=== PATIENT | male | born 1970 | race African-American/Black ===

== ENCOUNTER 2017-12-22 12:20 | Inpatient (IN) | payer OTHER ==
[2017-12-22 15:28] VITALS: BMI 26.6
--- NOTE | 2017-12-22 18:19 | HP ---
COWS - Scale Resting Pulse: 1= [place] 81-100 Sweatin=Flushed/Facial Moisture Restless Observation: 3= Extraneous Movement Pupil Size: 2= Moderately Dilated Bone or Joint Aches: 2= Severe Diffuse Aches Runny Nose/ Eye Tearin= Runny Nose/Eyes GI Upset > 30mins: 3= Vomiting/Diarrhea Tremor Observation: 2= Slight Tremor Visible Yawning Observation: 2= >3x During Session Anxiety or Irritability: 2=Irritable/Anxious Goose Flesh Skin: 0=Smooth Skin COWS Score: 21 CIWA Score - CIWA Score Nausea/Vomitin Muscle Tremors: 3 Anxiety: 3 Agitation: 3 Paroxysmal Sweats: 1-Minimal Palms Moist Orientation: 0-Oriented Tacttile Disturbances: 2-Mild Itch/Numbness/Burn Auditory Disturbances: 2-Mild Harshness/Frighten Visual Disturbances: 0-None Headache: 2-Mild CIWA-Ar Total Score: 19 Admission ROS BHS - HPI Chief Complaint: I NEED HELP TO STOP USING HEROIN,ALCOHOL,COCAINE AND MARIJUANA Allergies/Adverse Reactions: Allergies Allergy/AdvReac Type Severity Reaction Status Date / Time Penicillins Allergy Mild Difficulty Verified 12/22/17 17:54 Breathing shellfish derived Allergy Mild Hives Verified 12/22/17 17:54 History of Present Illness: THIS 47 YEARS OLD MALE WITH HEROIN,ALCOHOL,COCAINE,MARIJUANA DEPENDENCE,SEEKING DETOX,WITHDRAWAL SYMPTOM,LAST DETOX 2016 [facility] LAST 6 MOTHS AGO NO MAJOR MEDICAL PROBLEM NICOTINE DEPENDENCE INSOMNIA LONGEST PERIOD OF SOBRIETY 8 YEARS Exam Limitations: No Limitations - Ebola screening Have you been sick,other than usual withdrawal symptoms: No - Review of Systems Constitutional: Chills, Loss of Appetite, Malaise, Night Sweats, Changes in sleep, Weakness, Unintentional Wgt. Loss EENT: reports: Tearing, Nose Congestion Respiratory: reports: No Symptoms reported Cardiac: reports: No Symptoms Reported GI: reports: Diarrhea, Nausea, Vomiting, Abdominal cramping : reports: No Symptoms Reported Musculoskeletal: reports: Back Pain, Joint Pain, Muscle Pain, Joint Stiffness Integumentary: reports: Dryness Neuro: reports: Headache, Tremors Endocrine: reports: No Symptoms Reported Hematology: reports: No Symptoms Reported Psychiatric: reports: No Sypmtoms Reported, Judgement Intact, Mood/Affect Appropiate, Anxious, Depressed Patient History - Patient Medical History Hx Anemia: No Hx Asthma: No Hx Chronic Obstructive Pulmonary Disease (COPD): No Hx Cancer: No Hx Cardiac Disorders: No Hx Congestive Heart Failure: No Hx Hypertension: No Hx Hypercholesterolemia: No Hx Pacemaker: No HX Cerebrovascular Accident: No Hx Seizures: No Hx Dementia: No Hx Diabetes: No Hx Gastrointestinal Disorders: No Hx Liver Disease: No Hx Genitourinary Disorders: No Hx Sexually Transmitted Disorders: No Hx Renal Disease (ESRD): No Hx Thyroid Disease: No Hx Human Immunodeficiency Virus (HIV): No (LAST 2013 NEGATIVE) Hx Hepatitis C: No Hx Depression: No Hx Suicide Attempt: No Hx Bipolar Disorder: No Hx Schizophrenia: No Other Medical History: NO SUICIDAL,NO HOMICAL - Patient Surgical History Past Surgical History: No - PPD History Previous Implant?: Yes Documented Results: Negative w/o proof Implanted On Prior [facility] Admission?: No PPD to be Administered?: Yes - Smoking Cessation Smoking history: Current some day smoker Have you smoked in the past 12 months: Yes Aproximately how many cigarettes per day: 5 Cigars Per Day: 0 Hx Chewing Tobacco Use: No Initiated information on smoking cessation: Yes 'Breaking Loose' booklet given: 12/22/17 - Substance & Tx. History Hx Alcohol Use: Yes Hx Substance Use: Yes Substance Use Type: Alcohol, Cocaine, Heroin - Substances Abused Alcohol Route: Oral Frequency: Daily Amount used: 4/6 PACKS BEER Age of first use: 13 Date of Last Use: 12/21/17 Cocaine Route: Smoking Frequency: 3-6 times per week Amount used: $100WEEK Age of first use: 13 Date of Last Use: 12/21/17 Heroin Route: Inhalation Frequency: 1-2 times per week Amount used: $150 DAY Age of first use: 17 Date of Last Use: 12/21/17 Family Disease History - Family Disease History Family Disease History: Other: Father (DSA,), Mother (ALCOHOL,) Admission Physical Exam BHS - Vital Signs Vital Signs: Vital Signs - 24 hr 12/22/17 15:26 Temperature 98.6 F Pulse Rate 88 Respiratory 20 Rate Blood Pressure 160/101 - Physical General Appearance: Yes: Moderate Distress, Tremorous, Irritable, Sweating, Anxious HEENTM: Yes: Normal ENT Inspection, MARY, Pharynx Normal Respiratory: Yes: Lungs Clear, Normal Breath Sounds, No Respiratory Distress Neck: Yes: Within Normal Limits, Supple, Trachea in good position Breast: Yes: Within Normal Limits Cardiology: Yes: Within Normal Limits, Regular Rhythm, Regular Rate, S1, S2 Abdominal: Yes: Within Normal Limits, Normal Bowel Sounds, Non Tender, Soft Genitourinary: Yes: Within Normal Limits Back: Yes: Within Normal Limits, Normal Inspection, Muscle Spasm Musculoskeletal: Yes: full range of Motion, Back pain, Joint Stiffness, Muscle Pain Extremities: Yes: Within Normal Limits, Normal Range of Motion, Non-Tender, Tremors Neurological: Yes: poultry packer II-XII NML intact, Fully Oriented, Alert, Motor Strength 5/5 Integumentary: Yes: Dry Lymphatic: Yes: Within Normal Limits - Diagnostic (1) Opioid dependence with withdrawal Current Visit: Yes Status: Acute (2) Alcohol dependence with uncomplicated withdrawal Current Visit: Yes Status: Acute (3) Cocaine dependence Current Visit: Yes Status: Acute (4) Cannabis dependence Current Visit: Yes Status: Acute (5) Weight loss Current Visit: Yes Status: Acute (6) Nicotine dependence Current Visit: Yes Status: Acute (7) Syncope Current Visit: Yes Status: Acute Cleared for Admission [facility] - Detox or Rehab [facility] Level of Care: Medically Managed Detox Regimen/Protocol: Methadone/Librium [facility] Breath Alcohol Content Breath Alcohol Content: 0 Urine Drug Screen - Results Drug Screen Negative: No Urine Drug Screen Results: THC-Marijuana, LUKE-Cocaine, OPI-Opiates
[2017-12-22] MEDS ORDERED: LOPERAMIDE HCL 2 MG CAPSULE PO PRN (18:38)
[2017-12-22] MEDS ORDERED: MAGNESIUM HYDROX 2400MG/30ML ORAL SUSPENSION 30 ML CUP PO PRN (18:38)
[2017-12-22] MEDS ORDERED: chlordiazePOXIDE HCL 25 MG CAPSULE PO PRN (18:38)
[2017-12-22] MEDS ORDERED: MAG HYDROX/AL HYDROX/SIMETH 30 ML UNIT-DOSE CUP PO PRN (18:38)
[2017-12-22] MEDS ORDERED: MENTHOL/PHENOL 1 EACH UD MM PRN (18:38)
[2017-12-22] MEDS ORDERED: hydrOXYzine PAMOATE 25 MG CAPSULE (FP) PO PRN (18:38)
[2017-12-22] MEDS ORDERED: ACETAMINOPHEN 325 MG TABLET (FP) PO PRN (18:38)
[2017-12-22] MEDS ORDERED: MAGNESIUM CITRATE 300 ML BOTTLE PO PRN (18:38)
[2017-12-22] MEDS ORDERED: IBUPROFEN 400 MG TABLET (FP) PO PRN (18:38)
[2017-12-22] MEDS ORDERED: P-EPHED 60MG/TRIPROLIDI 2.5MG TABLET PO PRN (18:38)
[2017-12-22] MEDS ORDERED: chlordiazePOXIDE HCL 25 MG CAPSULE PO ONE (19:00)
[2017-12-22] MEDS ORDERED: METHADONE HCL 10 MG TABLET (FOR DETOX USE ONLY) PO ONE ×2 (19:00→23:00)
[2017-12-22] MEDS: NICOTINE 21 MG/24 HOURS TOPICAL PATCH TD SCH (19:50)
[2017-12-22 21:08] LABS: URINE APPEARANCE CLEAR; URINE BILIRUBIN NEGATIVE (NEGATIVE); URINE BLOOD 1+ (NEGATIVE); URINE COLOR LTYELLOW; URINE GLUCOSE (UA) NEGATIVE (NEGATIVE); URINE KETONE NEGATIVE (NEGATIVE); URINE LEUK ESTERASE NEGATIVE (NEGATIVE); URINE NITRITE NEGATIVE (NEGATIVE); URINE PROTEIN NEGATIVE (NEGATIVE); URINE UROBILINOGEN NEGATIVE mg/dL (0.2-1.0)
[2017-12-22 21:17] LABS: EPI CELLS RARE /HPF (FEW); URINE MUCUS RARE
[2017-12-22] MEDS: CYCLOBENZAPRINE HCL 10 MG TABLET (FP) PO PRN (22:39)
[2017-12-22] MEDS: MELATONIN 5 MG TABLETS PO SCH (22:39)
[2017-12-22] MEDS: cloNIDine HCL 0.1 MG TABLET PO SCH (22:39)
[2017-12-22] MEDS: THIAMINE HCL 100 MG TABLET (FP) PO SCH (22:39)
[2017-12-22] MEDS: chlordiazePOXIDE HCL 25 MG CAPSULE PO SCH (22:40)
[2017-12-23] MEDS: chlordiazePOXIDE HCL 25 MG CAPSULE PO SCH ×4 (05:28→22:12)
--- NOTE | 2017-12-23 08:23 | EKG ---
Test Reason : Blood Pressure : / mmHG Vent. Rate : 084 BPM Atrial Rate : 084 BPM P-R Int : 164 ms QRS Dur : 086 ms QT Int : 372 ms P-R-T Axes : 061 074 064 degrees QTc Int : 439 ms NORMAL SINUS RHYTHM EARLY REPOLARIZATION NORMAL ECG NO PREVIOUS ECGS AVAILABLE Confirmed by BRYAN JACOBS, KARSTEN ([id number]) on 12/23/2017 8:22:39 AM Referred By: Confirmed By:KARSTEN ADAMS MD
--- NOTE | 2017-12-23 09:10 | PN ---
[facility] CIWA - CIWA Score Nausea/Vomitin-Mild Nausea/No Vomiting Muscle Tremors: 4-Moderate,w/Arms Extend Anxiety: 4-Mod. Anxious/Guarded Agitation: 4-Moderately Restless Paroxysmal Sweats: 1-Minimal Palms Moist Orientation: 0-Oriented Tacttile Disturbances: 1-Very Mild Itch/Numbness Auditory Disturbances: 0-None Visual Disturbances: 0-None Headache: 1-Very Mild CIWA-Ar Total Score: 16 BHS COWS - Scale Resting Pulse: 0= [place] 80 or Below Sweatin= Chills/Flushing Restless Observation: 1= Difficult to Sit Still Pupil Size: 0= Normal to Room Light Bone or Joint Aches: 2= Severe Diffuse Aches Runny Nose/ Eye Tearin= Runny Nose/Eyes GI Upset > 30mins: 2= Nausea/Diarrhea Tremor Observation of Outstretched Hands: 2= Slight Tremor Visible Yawning Observation: 2= >3x During Session Anxiety or Irritability: 2=Irritable/Anxious Goose Flesh Skin: 3=Piloerection COWS Score: 17 [facility] Progress Note (SOAP) Subjective: joint pain body aches sweat tremor restlessness anxiety running nose sleeplessness irritable Objective: 12/23/17 09:10 Vital Signs Temperature 97.7 F 12/23/17 06:32 Pulse Rate 69 12/23/17 06:32 Respiratory Rate 18 12/23/17 06:32 Blood Pressure 88/58 12/23/17 06:32 O2 Sat by Pulse Oximetry (%) Laboratory Last Values Urine Color Ltyellow 12/22/17 20:00 Urine Appearance Clear 12/22/17 20:00 Urine pH 6.0 (5.0-8.0) 12/22/17 20:00 Ur Specific [place] 1.010 (1.001-1.035) 12/22/17 20:00 Urine Protein Negative (NEGATIVE) 12/22/17 20:00 Urine Glucose (UA) Negative (NEGATIVE) 12/22/17 20:00 Urine Ketones Negative (NEGATIVE) 12/22/17 20:00 Urine Blood 1+ (NEGATIVE) H 12/22/17 20:00 Urine Nitrite Negative (NEGATIVE) 12/22/17 20:00 Urine Bilirubin Negative (NEGATIVE) 12/22/17 20:00 Urine Urobilinogen Negative mg/dL (0.2-1.0) 12/22/17 20:00 Ur Leukocyte Esterase Negative (NEGATIVE) 12/22/17 20:00 Urine WBC (Auto) 1 /hpf (3-5) 12/22/17 20:00 Urine RBC (Auto) <1 /hpf (0-3) 12/22/17 20:00 Ur Epithelial Cells Rare /HPF (FEW) 12/22/17 20:00 Urine Mucus Rare 12/22/17 20:00 lab noted Assessment: 12/23/17 09:12 withdrawal sx 12/23/17 09:12 hypertension Plan: continue detox hold clonidine when systolic below 100
[2017-12-23] MEDS ORDERED: METHADONE HCL 10 MG TABLET (FOR DETOX USE ONLY) PO SCH (10:00)
[2017-12-23 10:12] LABS: HEMATOCRIT 38.8 % (35.4-49); HEMOGLOBIN 13.3 GM/dL (11.7-16.9); MCHC 34.2 g/dl (32.0-35.9); MEAN CELL VOLUME 93.5 fl (80-96); MEAN PLT VOLUME 7.5 fl (7.5-11.1); PLATELET COUNT 322 K/MM3 (134-434); RBC 4.15 M/mm3 (4.00-5.60); RDW 13.4 % (11.9-15.9); WHITE BLOOD COUNT 4.4 K/mm3 (4.0-10.0)
[2017-12-23 10:15] LABS: CHLORIDE 107 mmol/L (98-107); POTASSIUM 4.3 mmol/L (3.5-5.1); SODIUM 142 mmol/L (136-145)
[2017-12-23 10:25] LABS: ALBUMIN 3.2 g/dl (3.4-5.0); ALK PHOS 114 U/L (45-117); ANION GAP 9 (8-16); BILIRUBIN,TOTAL 0.3 mg/dL (0.2-1.0); BLOOD UREA NITROGEN 16 mg/dL (7-18); CALCIUM 8.4 mg/dL (8.5-10.1); CO2 26 mmol/L (21-32); CREATININE 0.9 mg/dL (0.7-1.3); GLUCOSE,RANDOM 82 mg/dL (74-106); SGOT/AST 20 U/L (15-37); SGPT/ALT 33 U/L (12-78); TOT PROT 6.3 g/dl (6.4-8.2)
[2017-12-23] MEDS ORDERED: ALBUTEROL SO4 0.083% IH SOL 2.5 MG/3 ML VIAL.NEB. NEB PRN (10:51)
[2017-12-23] MEDS ORDERED: ALBUTEROL SO4 18 GM HFA INHALER IH PRN (10:51)
[2017-12-23] MEDS: cloNIDine HCL 0.1 MG TABLET PO SCH ×2 (10:52→22:11)
[2017-12-23] MEDS: PRENATAL VITAMINS W/ FOLIC ACID TABLET (FP) PO SCH (10:52)
[2017-12-23] MEDS ORDERED: BACLOFEN 10 MG TABLET (FP) PO PRN (10:53)
[2017-12-23] MEDS: guaiFENesin/D-METHORPHAN HB 10 ML UNIT-DOSE CUPS PO PRN ×2 (10:54→22:15)
[2017-12-23] MEDS: NICOTINE 21 MG/24 HOURS TOPICAL PATCH TD SCH (10:54)
[2017-12-23] MEDS ORDERED: predniSONE 20 MG TABLET (UD) PO ONE ×2 (14:06→15:00)
--- NOTE | 2017-12-23 15:22 | CONSULT ---
[facility] Psychiatric Consult - Data Date of interview: 12/23/17 Admission source: [facility] Identifying data: This is 47 years old male, single, living alone, on SSI, with psychiatric hospitalization history, history of Bipoiar Disorder is here looking for detox from Alcohol, Heroin and Nicotine,:''I need help to stop using Cocaine, Alcohol and Heroin'' Substance Abuse History: - Smoking Cessation. Smoking history: Current some day smoker. Have you smoked in the past 12 months: Yes. Aproximately how many cigarettes per day: 5. Cigars Per Day: 0. Hx Chewing Tobacco Use: No. Initiated information on smoking cessation: Yes. 'Breaking Loose' booklet given : 12/22/17. - Substance & Tx. History. Hx Alcohol Use: Yes. Hx Substance Use : Yes. Substance Use Type: Alcohol, Cocaine, Heroin. - Substances Abused. Alcohol. Route: Oral. Frequency: Daily. Amount used: 4/6 PACKS BEER. Age of first use: 13. Date of Last Use: 12/21/17. Cocaine. Route: Smoking. Frequency: 3-6 times per week. Amount used: $100WEEK. Age of first use: 13. Date of Last Use: 12/21/17. Heroin. Route: Inhalation. Frequency: 1-2 times per week. Amount used: $150 DAY. Age of first use: 17. Date of Last Use : 12/21/17 Medical History: Weioght loss history, Syncope history Psychiatric History: As per nursing report patient asking for Wellbutrin order he was taking prior to admission. Patient evaluated, chart revewed. Patient states he has history of hearing voices, history of Schizophrenia and Bipolar Disorder, reports taking in the past Zyprexa, Risperdal and Seroquel, reports taking prior to admission: Wellbutrin 150mg po bid. Patient reports history of psychiatric asdmission due to hearing voices, reports taking prior to admission: Wellbutrin 150mg po bid Physical/Sexual Abuse/Trauma History: Denies Additional Comment: Wellbutrin 150mg po bid Mental Status Exam - Mental Status Exam Alert and Oriented to: Person Cognitive Function: Fair Patient Appearance: Well Groomed Mood: Suspicious Affect: Mood Congruent Patient Behavior: Cooperative Speech Pattern: Appropriate Voice Loudness: Mildly Soft/Quiet Thought Process: Goal Oriented Thought Disorder: Being Controlled Hallucinations: Denies Suicidal Ideation: Denies Homicidal Ideation: Denies Insight/Judgement: Fair Sleep: Difficulty falling asleep Appetite: Weight loss Muscle strength/Tone: Normal Gait/Station: Normal Additional Comments: Wellbutrin 150mg po bid Psychiatric Findings - Problem List ([place] 1, 2,3) (1) Alcohol dependence with uncomplicated withdrawal Current Visit: Yes Status: Acute (2) Cannabis dependence Current Visit: Yes Status: Acute (3) Cocaine dependence Current Visit: Yes Status: Acute (4) Nicotine dependence Current Visit: Yes Status: Acute (5) Opioid dependence with withdrawal Current Visit: Yes Status: Acute (6) Schizoaffective disorder, bipolar type Current Visit: Yes Status: Acute - Initial Treatment Plan Initial Treatment Plan: Wellbutrin 150mg po bid
[2017-12-23] MEDS: buPROPion HCL 75 MG TABLET PO SCH (17:16)
[2017-12-23] MEDS: CYCLOBENZAPRINE HCL 10 MG TABLET (FP) PO PRN (22:12)
[2017-12-23] MEDS: MELATONIN 5 MG TABLETS PO SCH (22:12)
[2017-12-23] MEDS: BUDESONIDE/FORMETEROL FUMARATE 80/4.5 mcg INHALER IH SCH (22:14)
[2017-12-23] MEDS: THIAMINE HCL 100 MG TABLET (FP) PO SCH (23:10)
[2017-12-24] MEDS: chlordiazePOXIDE HCL 25 MG CAPSULE PO SCH ×3 (05:45→16:52)
[2017-12-24] MEDS ORDERED: predniSONE 40 MG, predniSONE 10 MG PO ONE (10:00)
[2017-12-24] MEDS ORDERED: predniSONE 20 MG TABLET (UD) PO ONE ×2 (10:00)
[2017-12-24] MEDS ORDERED: predniSONE 20 MG TABLET (UD) PO SCH (10:00)
[2017-12-24] MEDS: METHADONE HCL 5 MG TABLET (FOR DETOX USE ONLY) PO SCH (10:09)
[2017-12-24] MEDS: PRENATAL VITAMINS W/ FOLIC ACID TABLET (FP) PO SCH (10:09)
[2017-12-24] MEDS: cloNIDine HCL 0.1 MG TABLET PO SCH ×2 (10:09→22:09)
[2017-12-24] MEDS: BUDESONIDE/FORMETEROL FUMARATE 80/4.5 mcg INHALER IH SCH ×2 (10:10→22:10)
[2017-12-24] MEDS: buPROPion HCL 75 MG TABLET PO SCH ×2 (10:10→17:36)
[2017-12-24] MEDS: NICOTINE 21 MG/24 HOURS TOPICAL PATCH TD SCH (10:10)
[2017-12-24] MEDS: MELATONIN 5 MG TABLETS PO SCH (22:09)
[2017-12-24] MEDS: chlordiazePOXIDE 5 MG CAPSULE PO SCH (22:09)
[2017-12-24] MEDS: THIAMINE HCL 100 MG TABLET (FP) PO SCH (22:10)
[2017-12-25] MEDS: chlordiazePOXIDE 5 MG CAPSULE PO SCH ×2 (05:45→10:13)
[2017-12-25 09:51] VITALS: BP 119/84; PULSE 72; TEMP 97.3
[2017-12-25] MEDS: buPROPion HCL 75 MG TABLET PO SCH (10:13)
[2017-12-25] MEDS: cloNIDine HCL 0.1 MG TABLET PO SCH (10:13)
[2017-12-25] MEDS: PRENATAL VITAMINS W/ FOLIC ACID TABLET (FP) PO SCH (10:13)
[2017-12-25] MEDS: BUDESONIDE/FORMETEROL FUMARATE 80/4.5 mcg INHALER IH SCH (10:13)
[2017-12-25] MEDS: METHADONE HCL 5 MG TABLET (FOR DETOX USE ONLY) PO SCH (10:13)
[2017-12-25] MEDS: NICOTINE 21 MG/24 HOURS TOPICAL PATCH TD SCH (10:14)
[2017-12-25] MEDS ORDERED: predniSONE 20 MG TABLET (UD) PO ONE (14:08)
--- NOTE | 2017-12-25 17:08 | PN ---
[facility] CIWA - CIWA Score Nausea/Vomitin Muscle Tremors: 3 Anxiety: 5 Agitation: 4-Moderately Restless Paroxysmal Sweats: 1-Minimal Palms Moist Orientation: 0-Oriented Tacttile Disturbances: 0-None Auditory Disturbances: 0-None Visual Disturbances: 0-None Headache: 0-None Present CIWA-Ar Total Score: 15 BHS COWS - Scale Resting Pulse: 1= [place] 81-100 Sweatin=Flushed/Facial Moisture Restless Observation: 3= Extraneous Movement Pupil Size: 0= Normal to Room Light Bone or Joint Aches: 1= Mild Discomfort Runny Nose/ Eye Tearin= Nasal Congestion GI Upset > 30mins: 1= Stomach Cramp Tremor Observation of Outstretched Hands: 2= Slight Tremor Visible Yawning Observation: 1= 1-2x During Session Anxiety or Irritability: 2=Irritable/Anxious Goose Flesh Skin: 0=Smooth Skin COWS Score: 14 BHS Progress Note (SOAP) Subjective: nasl congestion shakes Objective: 12/25/17 17:07 A & O x 3 irritable Assessment: 12/25/17 17:07 withdrawal sx Plan: continue detox
--- NOTE | 2017-12-25 17:10 | DS ---
[facility] Detox Discharge Summary Admission Date: 12/22/17 Discharge Date: 12/25/17 - History Additional Comments: Pt requesting to leave. Gave no reasons, just that he wants to need: appears to want to leave because roommate also leaving Insists on leaving despite advice to stay, declines to discuss if anything can be done to change his mind. in no acute distress, denies SI/HI pt will leave AMA - Physical Exam Results Vital Signs: Vital Signs Temperature 97.3 F L 12/25/17 09:50 Pulse Rate 72 12/25/17 09:50 Respiratory Rate 20 12/25/17 09:50 Blood Pressure 119/84 12/25/17 09:50 O2 Sat by Pulse Oximetry (%) Pertinent Admission Physical Exam Findings: withdrawal sx - Medication Discharge Medications: Ambulatory Orders Bupropion HCl [Wellbutrin -] 150 mg PO BID #60 tablet 12/23/17 - Diagnosis (1) Alcohol dependence with uncomplicated withdrawal Status: Acute (2) Cannabis dependence Status: Acute (3) Cocaine dependence Status: Acute (4) Nicotine dependence Status: Acute (5) Opioid dependence with withdrawal Status: Acute - AMA Did Patient Leave Against Medical Advice: Yes
[2017-12-25] MEDS ORDERED: chlordiazePOXIDE HCL 10 MG CAPSULE PO SCH (23:00)
[2017-12-26] MEDS ORDERED: predniSONE 10 MG TABLET (UD) PO ONE (10:00)
[2017-12-26] MEDS ORDERED: METHADONE HCL 10 MG TABLET (FOR DETOX USE ONLY) PO SCH (10:00)
[2017-12-27] MEDS ORDERED: METHADONE HCL 5 MG TABLET (FOR DETOX USE ONLY) PO SCH (06:00)
[2017-12-27] MEDS ORDERED: predniSONE 20 MG TABLET (UD) PO ONE (06:00)
== END 2017-12-25 13:19 | disposition left against medical advice (07) | DRG 770 ==
LOC: YASAS 12:20 → Y6N 18:03
PROVIDERS: ADMIT Internal Medicine; ATTEND Internal Medicine
PROC: HZ2ZZZZ Detoxification Services for Substance Abuse Treatment (ICD-10-PCS; principal; 2017-12-22)
DX: F11.23 Opioid dependence with withdrawal (principal); F10.230 Alcohol dependence with withdrawal, uncomplicated; F14.20 Cocaine dependence, uncomplicated; F12.20 Cannabis dependence, uncomplicated; F17.210 Nicotine dependence, cigarettes, uncomplicated; F31.9 Bipolar disorder, unspecified; F25.0 Schizoaffective disorder, bipolar type; R55 Syncope and collapse; R63.4 Abnormal weight loss; Z68.26 Body mass index [BMI] 26.0-26.9, adult
CPT/HCPCS: 36415; 80053; 81003; 81015; 85027; 86593; 87389; 93005; 93010; 94640; J0735

== ENCOUNTER 2018-01-27 13:56 | Inpatient (IN) | payer OTHER ==
[2018-01-27 15:13] VITALS: BMI 28.3
--- NOTE | 2018-01-27 18:31 | HP ---
CIWA Score - CIWA Score Nausea/Vomitin Muscle Tremors: 3 Anxiety: 2 Agitation: 2 Paroxysmal Sweats: 2 Orientation: 0-Oriented Tacttile Disturbances: 0-None Auditory Disturbances: 0-None Visual Disturbances: 0-None Headache: 3-Moderate CIWA-Ar Total Score: 14 Admission ROS BHS - HPI Chief Complaint: I am here for detox fro alcohol, it has become a problem Allergies/Adverse Reactions: Allergies Allergy/AdvReac Type Severity Reaction Status Date / Time Penicillins Allergy Severe Hives Verified 01/27/18 16:56 shellfish derived Allergy Severe Swelling Verified 01/27/18 16:56 History of Present Illness: 47 yo male with hx alcohol, nicotine, cocaine and THC dependence is here seeking detox. Patient reports recently experimenting once with xanax within the past two weeks. PMHX: asthma, bipolar, schizophrenia.Denies suicidal / homicidal ideation. Reports attempted to commit suicide in 2007 by lacerating his wrist after the of his mother. Denies hx of seizures, reports episode of blackouts, last episode November 2017. Last detox at [facility] 12/22/17 -12/25/17. Longest period of sobriety 18 months. Exam Limitations: No Limitations - Ebola screening Have you traveled outside of the country in the last 21 days: No (N) Have you had contact with anyone from an Ebola affected area: No Have you been sick,other than usual withdrawal symptoms: No Do you have a fever: No - Review of Systems Constitutional: Chills, Changes in sleep, Weakness EENT: reports: Blurred Vision (wears glasses) Respiratory: reports: No Symptoms reported Cardiac: reports: Lightheadedness GI: reports: Nausea, Poor Appetite, Indigestion : reports: No Symptoms Reported Musculoskeletal: reports: No Symptoms Reported Integumentary: reports: No Symptoms Reported Neuro: reports: See HPI, Headache, Weakness Endocrine: reports: Increased Thirst Hematology: reports: No Symptoms Reported Psychiatric: reports: Orientated x3, Anxious Other Systems: Reviewed and Negative Patient History - Patient Medical History Hx Anemia: No Hx Asthma: Yes Hx Chronic Obstructive Pulmonary Disease (COPD): No Hx Cancer: No Hx Cardiac Disorders: No Hx Congestive Heart Failure: No Hx Hypertension: No Hx Hypercholesterolemia: No Hx Pacemaker: No HX Cerebrovascular Accident: No Hx Seizures: No Hx Dementia: No Hx Diabetes: No Hx Gastrointestinal Disorders: No Hx Liver Disease: No Hx Genitourinary Disorders: No Hx Sexually Transmitted Disorders: No Hx Renal Disease (ESRD): No Hx Thyroid Disease: No Hx Human Immunodeficiency Virus (HIV): No (last tested 2016) Hx Hepatitis C: No Hx Depression: No Hx Suicide Attempt: No Hx Bipolar Disorder: Yes Hx Schizophrenia: Yes - Patient Surgical History Past Surgical History: No Hx Neurologic Surgery: No Hx Cataract Extraction: No Hx Cardiac Surgery: No Hx Lung Surgery: No Hx Breast Surgery: No Hx Breast Biopsy: No Hx Abdominal Surgery: No Hx Appendectomy: No Hx Cholecystectomy: No Hx Genitourinary Surgery: No Hx Section: No Hx Orthopedic Surgery: No Other Surgical History: 2007 Scrotal Cyst drainage Anesthesia Reaction: No - PPD History Previous Implant?: No Documented Results: Negative w/proof Implanted On Prior [facility] Admission?: Yes Date: 12/24/17 PPD to be Administered?: No - Reproductive History Patient is a Female of Child Bearing Age (11 -55 yrs old): No - Smoking Cessation Smoking history: Current some day smoker Have you smoked in the past 12 months: Yes Aproximately how many cigarettes per day: 5 Cigars Per Day: 0 Hx Chewing Tobacco Use: No Initiated information on smoking cessation: Yes 'Breaking Loose' booklet given: 01/27/18 - Substance & Tx. History Hx Alcohol Use: Yes Hx Substance Use: Yes Substance Use Type: Alcohol, Cocaine, Marijuana Hx Substance Use Treatment: Yes ([facility] 12/22/17 - 12/25/17) - Substances Abused Alcohol Route: Oral Frequency: Daily Amount used: BEER- 2 SIX PACK, Age of first use: 17 Date of Last Use: 01/27/18 Cocaine Route: Inhalation Frequency: Daily Amount used: $40 WORTH Age of first use: 25 Date of Last Use: 01/26/18 Marijuana/Hashish Route: Smoking Frequency: Daily Amount used: $20 WORTH Age of first use: 18 Date of Last Use: 01/26/18 Family Disease History - Family Disease History Family Disease History: Other: Father (DSA,), Mother (ALCOHOL,) Admission Physical Exam BHS - Vital Signs Vital Signs: Vital Signs - 24 hr 01/27/18 15:08 Temperature 96.8 F L Pulse Rate 81 Respiratory 20 Rate Blood Pressure 145/88 - Physical General Appearance: Yes: Appropriately Dressed, Tremorous, Sweating, Anxious HEENTM: Yes: EOMI, Hearing grossly Normal, Normal ENT Inspection, Normocephalic , Normal Voice, MARY, Tm's normal Respiratory: Yes: Chest Non-Tender, Lungs Clear, Normal Breath Sounds, No Respiratory Distress, No Accessory Muscle Use Neck: Yes: Within Normal Limits Cardiology: Yes: Regular Rhythm, Regular Rate Abdominal: Yes: Normal Bowel Sounds, Non Tender, Soft, Protuberent Genitourinary: Yes: Within Normal Limits Back: Yes: Normal Inspection Musculoskeletal: Yes: full range of Motion, Gait Steady, Pelvis Stable Extremities: Yes: Normal Capillary Refill, Normal Inspection, Normal Range of Motion, Non-Tender Neurological: Yes: sneller hand II-XII NML intact, Fully Oriented, Alert, Motor Strength 5/5, Depressed Affect Integumentary: Yes: Normal Color, Warm, Moist Lymphatic: Yes: Within Normal Limits - Diagnostic (1) Nausea Current Visit: Yes Status: Acute (2) Elevated blood pressure reading in office without diagnosis of hypertension Current Visit: Yes Status: Acute (3) Alcohol dependence with uncomplicated withdrawal Current Visit: Yes Status: Acute (4) Cannabis dependence Current Visit: Yes Status: Acute (5) Cocaine dependence Current Visit: Yes Status: Acute Qualifiers: Substance use status: uncomplicated Qualified Code(s): F14.20 - Cocaine dependence, uncomplicated (6) Nicotine dependence Current Visit: Yes Status: Acute Qualifiers: Nicotine product type: cigarettes (7) Schizoaffective disorder, bipolar type Current Visit: Yes Status: Suspected Cleared for Admission [facility] - Detox or Rehab [facility] Level of Care: Medically Managed Detox Regimen/Protocol: Librium [facility] Breath Alcohol Content Breath Alcohol Content: 0 Urine Drug Screen - Results Drug Screen Negative: No Urine Drug Screen Results: THC-Marijuana, LUKE-Cocaine, BZO-Benzodiazepines
[2018-01-27] MEDS ORDERED: ONDANSETRON *ODT* 4 MG TABLET SL PRN (18:39)
[2018-01-27] MEDS ORDERED: P-EPHED 60MG/TRIPROLIDI 2.5MG TABLET PO PRN (18:40)
[2018-01-27] MEDS ORDERED: MAGNESIUM HYDROX 2400MG/30ML ORAL SUSPENSION 30 ML CUP PO PRN (18:40)
[2018-01-27] MEDS ORDERED: chlordiazePOXIDE HCL 25 MG CAPSULE PO PRN (18:40)
[2018-01-27] MEDS ORDERED: MAG HYDROX/AL HYDROX/SIMETH 30 ML UNIT-DOSE CUP PO PRN (18:40)
[2018-01-27] MEDS ORDERED: MENTHOL/PHENOL 1 EACH UD MM PRN (18:40)
[2018-01-27] MEDS ORDERED: MAGNESIUM CITRATE 300 ML BOTTLE PO PRN (18:40)
[2018-01-27] MEDS ORDERED: LOPERAMIDE HCL 2 MG CAPSULE PO PRN (18:40)
[2018-01-27] MEDS ORDERED: ACETAMINOPHEN 325 MG TABLET (FP) PO PRN (18:40)
[2018-01-27] MEDS ORDERED: IBUPROFEN 400 MG TABLET (FP) PO PRN (18:40)
[2018-01-27] MEDS ORDERED: guaiFENesin/D-METHORPHAN HB 10 ML UNIT-DOSE CUPS PO PRN (18:40)
[2018-01-27] MEDS ORDERED: NICOTINE POLACRILEX 2 MG GUM BC PRN (18:40)
[2018-01-27] MEDS ORDERED: ALBUTEROL SO4 18 GM HFA INHALER IH PRN (18:45)
[2018-01-27] MEDS ORDERED: chlordiazePOXIDE HCL 25 MG CAPSULE PO ONE (19:15)
[2018-01-27] MEDS ORDERED: THIAMINE HCL 100 MG TABLET (FP) PO SCH (22:00)
[2018-01-27] MEDS ORDERED: MELATONIN 5 MG TABLETS PO PRN (22:00)
[2018-01-27] MEDS ORDERED: diphenhydrAMINE HCL 25 MG CAPSULE (FP) PO SCH (22:00)
[2018-01-27] MEDS: chlordiazePOXIDE HCL 25 MG CAPSULE PO SCH (22:39)
[2018-01-27] MEDS: BUDESONIDE/FORMETEROL FUMARATE 80/4.5 mcg INHALER IH SCH (22:40)
[2018-01-27 23:10] LABS: URINE APPEARANCE CLEAR; URINE BILIRUBIN NEGATIVE (<2.0 mg/dL); URINE COLOR LTYELLOW; URINE GLUCOSE (UA) NEGATIVE (NEGATIVE); URINE KETONE NEGATIVE (NEGATIVE); URINE LEUK ESTERASE NEGATIVE (NEGATIVE); URINE NITRITE NEGATIVE (NEGATIVE); URINE PROTEIN NEGATIVE (NEGATIVE)
[2018-01-28] MEDS: chlordiazePOXIDE HCL 25 MG CAPSULE PO SCH ×2 (06:01→10:18)
[2018-01-28] MEDS ORDERED: NICOTINE 14 MG/24 HOURS TOPICAL PATCH TD SCH (10:00)
[2018-01-28] MEDS ORDERED: PRENATAL VITAMINS W/ FOLIC ACID TABLET (FP) PO SCH (10:00)
--- NOTE | 2018-01-28 10:06 | EKG ---
Test Reason : Blood Pressure : / mmHG Vent. Rate : 079 BPM Atrial Rate : 079 BPM P-R Int : 158 ms QRS Dur : 086 ms QT Int : 386 ms P-R-T Axes : 046 063 056 degrees QTc Int : 442 ms NORMAL SINUS RHYTHM NORMAL ECG WHEN COMPARED WITH ECG OF 22-DEC-2017 19:33, NO SIGNIFICANT CHANGE WAS FOUND Confirmed by JOHNY MEJIA MD ([id number]) on 01/28/2018 10:05:50 AM Referred By: Confirmed By:JOHNY MEJIA MD
[2018-01-28] MEDS: BUDESONIDE/FORMETEROL FUMARATE 80/4.5 mcg INHALER IH SCH (10:18)
[2018-01-28 10:19] LABS: HEMATOCRIT 38.1 % (35.4-49); HEMOGLOBIN 13.2 GM/dL (11.7-16.9); MCH 32.1 pg (25.7-33.7); MCHC 34.8 g/dl (32.0-35.9); MEAN CELL VOLUME 92.2 fl (80-96); MEAN PLT VOLUME 7.8 fl (7.5-11.1); PLATELET COUNT 267 K/MM3 (134-434); RBC 4.13 M/mm3 (4.00-5.60); RDW 14.8 % (11.9-15.9); WHITE BLOOD COUNT 5.3 K/mm3 (4.0-10.0)
[2018-01-28 10:30] VITALS: TEMP 98.1
[2018-01-28 10:33] LABS: ALBUMIN 3.2 g/dl (3.4-5.0); ANION GAP 4 (8-16); BLOOD UREA NITROGEN 11 mg/dL (7-18); CALCIUM 8.2 mg/dL (8.5-10.1); CHLORIDE 111 mmol/L (98-107); CO2 28 mmol/L (21-32); GLUCOSE,RANDOM 94 mg/dL (74-106); SODIUM 143 mmol/L (136-145)
[2018-01-28 10:37] LABS: ALK PHOS 131 U/L (45-117); BILIRUBIN,TOTAL 0.4 mg/dL (0.2-1.0); CREATININE 0.8 mg/dL (0.7-1.3); SGOT/AST 42 U/L (15-37); SGPT/ALT 57 U/L (12-78); TOT PROT 6.3 g/dl (6.4-8.2)
--- NOTE | 2018-01-28 11:51 | PN ---
[facility] CIWA - CIWA Score Nausea/Vomitin Muscle Tremors: 3 Anxiety: 2 Agitation: 2 Paroxysmal Sweats: 1-Minimal Palms Moist Orientation: 0-Oriented Tacttile Disturbances: 1-Very Mild Itch/Numbness Auditory Disturbances: 1-Very Mild Visual Disturbances: 0-None Headache: 2-Mild CIWA-Ar Total Score: 15 S Progress Note (SOAP) Subjective: ALERT,IRRITABLE,ANXIOUS,INTERRUPTED SLEEP,TREMOR Objective: 01/28/18 11:49 Vital Signs Temperature 98.1 F 01/28/18 10:00 Pulse Rate 86 01/28/18 10:00 Respiratory Rate 18 01/28/18 10:00 Blood Pressure 117/74 01/28/18 10:00 O2 Sat by Pulse Oximetry (%) EKG NSR,NORMAL ECG,PROLONG QT 386/442 Laboratory Last Values WBC 5.3 K/mm3 (4.0-10.0) 01/28/18 07:30 RBC 4.13 M/mm3 (4.00-5.60) 01/28/18 07:30 Hgb 13.2 GM/dL (11.7-16.9) 01/28/18 07:30 Hct 38.1 % (35.4-49) 01/28/18 07:30 MCV 92.2 fl (80-96) 01/28/18 07:30 MCH 32.1 pg (25.7-33.7) 01/28/18 07:30 MCHC 34.8 g/dl (32.0-35.9) 01/28/18 07:30 RDW 14.8 % (11.9-15.9) D 01/28/18 07:30 Plt Count 267 K/MM3 (134-434) 01/28/18 07:30 MPV 7.8 fl (7.5-11.1) 01/28/18 07:30 Sodium 143 mmol/L (136-145) 01/28/18 07:30 Potassium 4.0 mmol/L (3.5-5.1) 01/28/18 07:30 Chloride 111 mmol/L (98-107) H 01/28/18 07:30 Carbon Dioxide 28 mmol/L (21-32) 01/28/18 07:30 Anion Gap 4 (8-16) L 01/28/18 07:30 BUN 11 mg/dL (7-18) D 01/28/18 07:30 Creatinine 0.8 mg/dL (0.7-1.3) 01/28/18 07:30 Creat Clearance w eGFR > 60 (>60) 01/28/18 07:30 Random Glucose 94 mg/dL (74-106) 01/28/18 07:30 Calcium 8.2 mg/dL (8.5-10.1) L 01/28/18 07:30 Total Bilirubin 0.4 mg/dL (0.2-1.0) D 01/28/18 07:30 AST 42 U/L (15-37) H D 01/28/18 07:30 ALT 57 U/L (12-78) D 01/28/18 07:30 Alkaline Phosphatase 131 U/L (45-117) H 01/28/18 07:30 Total Protein 6.3 g/dl (6.4-8.2) L 01/28/18 07:30 Albumin 3.2 g/dl (3.4-5.0) L 01/28/18 07:30 Urine Color Ltyellow 01/27/18 19:08 Urine Appearance Clear 01/27/18 19:08 Urine pH 7.0 (5.0-8.0) 01/27/18 19:08 Ur Specific [place] 1.012 (1.001-1.035) 01/27/18 19:08 Urine Protein Negative (NEGATIVE) 01/27/18 19:08 Urine Glucose (UA) Negative (NEGATIVE) 01/27/18 19:08 Urine Ketones Negative (NEGATIVE) 01/27/18 19:08 Urine Blood Negative (NEGATIVE) 01/27/18 19:08 Urine Nitrite Negative (NEGATIVE) 01/27/18 19:08 Urine Bilirubin Negative (<2.0 mg/dL) 01/27/18 19:08 Urine Urobilinogen 2.0 mg/dL (0.2-1.0) 01/27/18 19:08 Ur Leukocyte Esterase Negative (NEGATIVE) 01/27/18 19:08 RPR Titer Nonreactive (NONREACTIVE) 01/28/18 07:30 HIV 1&2 Antibody Screen Negative 01/28/18 07:30 HIV P24 Antigen Negative 01/28/18 07:30 Assessment: 01/28/18 11:51 WITHDRAWAL SYMPTOM Plan: CONTINUE DETOX
[2018-01-28 14:14] VITALS: BP 124/80; PULSE 84
--- NOTE | 2018-01-28 14:21 | PN ---
[facility] Progress Note Note: CALLED BY NURSE,PATIENT DID NOT WANT TO COMPLETE TREATMENT DUE TO PERSONAL ISSUE ,SEEN BY COUNSELOR,DID NOT WANT TO WAIT,SIGNED RELEASE AMA
--- NOTE | 2018-01-28 14:27 | DS ---
[facility] Detox Discharge Summary Admission Date: 01/27/18 Discharge Date: 01/28/18 - History Present History: Alcohol Dependence, Cannabis Dependence, Cocaine Dependence Additional Comments: PATIENT DID NOT WANT TO COMPLETE TREATMENT DUE TO PERSONAL ISSUE,SIGN RELEASE AMA,DID NOT WANT TO WAIT Pertinent Past History: NICOTINE DEPENDENCE - Physical Exam Results Vital Signs: Vital Signs Temperature 98.1 F 01/28/18 14:14 Pulse Rate 84 01/28/18 14:14 Respiratory Rate 20 01/28/18 14:14 Blood Pressure 124/80 01/28/18 14:14 O2 Sat by Pulse Oximetry (%) Pertinent Admission Physical Exam Findings: WITHDRAWAL SIGNS AND SYMPTOM Vital Signs Temperature 98.1 F 01/28/18 14:14 Pulse Rate 84 01/28/18 14:14 Respiratory Rate 20 01/28/18 14:14 Blood Pressure 124/80 01/28/18 14:14 O2 Sat by Pulse Oximetry (%) Vital Signs Temperature 98.1 F 01/28/18 14:14 Pulse Rate 84 01/28/18 14:14 Respiratory Rate 20 01/28/18 14:14 Blood Pressure 124/80 01/28/18 14:14 O2 Sat by Pulse Oximetry (%) Laboratory Last Values WBC 5.3 K/mm3 (4.0-10.0) 01/28/18 07:30 RBC 4.13 M/mm3 (4.00-5.60) 01/28/18 07:30 Hgb 13.2 GM/dL (11.7-16.9) 01/28/18 07:30 Hct 38.1 % (35.4-49) 01/28/18 07:30 MCV 92.2 fl (80-96) 01/28/18 07:30 MCH 32.1 pg (25.7-33.7) 01/28/18 07:30 MCHC 34.8 g/dl (32.0-35.9) 01/28/18 07:30 RDW 14.8 % (11.9-15.9) D 01/28/18 07:30 Plt Count 267 K/MM3 (134-434) 01/28/18 07:30 MPV 7.8 fl (7.5-11.1) 01/28/18 07:30 Sodium 143 mmol/L (136-145) 01/28/18 07:30 Potassium 4.0 mmol/L (3.5-5.1) 01/28/18 07:30 Chloride 111 mmol/L (98-107) H 01/28/18 07:30 Carbon Dioxide 28 mmol/L (21-32) 01/28/18 07:30 Anion Gap 4 (8-16) L 01/28/18 07:30 BUN 11 mg/dL (7-18) D 01/28/18 07:30 Creatinine 0.8 mg/dL (0.7-1.3) 01/28/18 07:30 Creat Clearance w eGFR > 60 (>60) 01/28/18 07:30 Random Glucose 94 mg/dL (74-106) 01/28/18 07:30 Calcium 8.2 mg/dL (8.5-10.1) L 01/28/18 07:30 Total Bilirubin 0.4 mg/dL (0.2-1.0) D 01/28/18 07:30 AST 42 U/L (15-37) H D 01/28/18 07:30 ALT 57 U/L (12-78) D 01/28/18 07:30 Alkaline Phosphatase 131 U/L (45-117) H 01/28/18 07:30 Total Protein 6.3 g/dl (6.4-8.2) L 01/28/18 07:30 Albumin 3.2 g/dl (3.4-5.0) L 01/28/18 07:30 Urine Color Ltyellow 01/27/18 19:08 Urine Appearance Clear 01/27/18 19:08 Urine pH 7.0 (5.0-8.0) 01/27/18 19:08 Ur Specific Bowie 1.012 (1.001-1.035) 01/27/18 19:08 Urine Protein Negative (NEGATIVE) 01/27/18 19:08 Urine Glucose (UA) Negative (NEGATIVE) 01/27/18 19:08 Urine Ketones Negative (NEGATIVE) 01/27/18 19:08 Urine Blood Negative (NEGATIVE) 01/27/18 19:08 Urine Nitrite Negative (NEGATIVE) 01/27/18 19:08 Urine Bilirubin Negative (<2.0 mg/dL) 01/27/18 19:08 Urine Urobilinogen 2.0 mg/dL (0.2-1.0) 01/27/18 19:08 Ur Leukocyte Esterase Negative (NEGATIVE) 01/27/18 19:08 RPR Titer Nonreactive (NONREACTIVE) 01/28/18 07:30 HIV 1&2 Antibody Screen Negative 01/28/18 07:30 HIV P24 Antigen Negative 01/28/18 07:30 - Medication Discharge Medications: Ambulatory Orders Albuterol Sulfate [Proair Hfa] 8.5 gm IH DAILY 01/27/18 Budesonide/Formeterol Fumarate [SYMBICORT 80/4.5mcg -] 1 inh PO BID 01/27/18 Diphenhydramine HCl [Benadryl -] 25 mg PO HS 01/27/18 Olanzapine [Zyprexa -] 10 mg PO DAILY 01/27/18 - Diagnosis (1) Alcohol dependence with uncomplicated withdrawal Current Visit: Yes Status: Acute (2) Cannabis dependence Current Visit: Yes Status: Acute (3) Cocaine dependence Current Visit: Yes Status: Acute Qualifiers: Substance use status: uncomplicated Qualified Code(s): F14.20 - Cocaine dependence, uncomplicated (4) Nicotine dependence Current Visit: Yes Status: Acute Qualifiers: Nicotine product type: cigarettes - AMA Did Patient Leave Against Medical Advice: Yes
--- NOTE | 2018-01-28 15:25 | PN ---
[facility] Progress Note Note: Psychiatric nurse practitioner: Hard Candy Spinner informed by staff that patient left AMA. Unable to complete psychiatric consultation.
[2018-01-28] MEDS ORDERED: chlordiazePOXIDE HCL 25 MG CAPSULE PO SCH (23:00)
[2018-01-29] MEDS ORDERED: chlordiazePOXIDE 5 MG CAPSULE PO SCH (23:00)
[2018-01-30] MEDS ORDERED: chlordiazePOXIDE HCL 10 MG CAPSULE PO SCH (23:00)
== END 2018-01-28 14:38 | disposition left against medical advice (07) | DRG 770 ==
LOC: YASAS 13:56 → Y6N 18:45
PROVIDERS: ADMIT Internal Medicine; ATTEND Internal Medicine
PROC: HZ2ZZZZ Detoxification Services for Substance Abuse Treatment (ICD-10-PCS; principal; 2018-01-27)
DX: F10.230 Alcohol dependence with withdrawal, uncomplicated (principal); F14.20 Cocaine dependence, uncomplicated; F12.20 Cannabis dependence, uncomplicated; F17.210 Nicotine dependence, cigarettes, uncomplicated; F25.0 Schizoaffective disorder, bipolar type; R03.0 Elevated blood-pressure reading, without diagnosis of hypertension; R11.0 Nausea
CPT/HCPCS: 36415; 80053; 81003; 85027; 86593; 87389; 93005; 93010